=== PATIENT | male | born 1955 ===

== ENCOUNTER 2018-09-22 10:24 | Emergency (ER) | payer OTHER ==
--- OUTSIDE RECORDS SUMMARY | 2018-09-22 10:53 | XMS REPORT | Continuity of Care Document ---
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 Lidia Albarran, MAIN Primary Care Physician Unavailable Payers Date Identification Numbers Payment Provider Subscriber Policy Number: [id number] [employer] Jayy Otto PayID: [id number] [address] [place] [address] Expires: 2015 Policy Number: [id number] [employer] Jayy Otto PayID: [id number] [address] [place] [address] Problems Active Problems Provider Date Mixed hyperlipidemia Onset: 08/13/2016 Family History Date Family Member(s) Observation Comments Father CAD Siblings 2 Social History Type Date Description Comments Sex Unknown Lives With Alone Diet Healthy, Well Balanced Occupation [employer] ADL's/IADL's Independent with all ADL's Tobacco Use Start: Unknown End: Unknown Former Cigarette Smoker Smoking Status Reviewed: 09/07/18 Former Cigarette Smoker ETOH Use Denies alcohol use Tobacco Use Start: Unknown End: Unknown Patient is a former smoker Recreational Drug Use Former Drug User Allergies, Adverse Reactions, Alerts Active Allergies Reaction Severity Comments Date Penicillin Severe 08/13/2016 Medications Active Medications SIG Qnty Indications Ordering Provider Date Cardizem CD 1 by mouth every 90caps Gil De 11/17/2017 120mg Caps andreea Raymond M.D., [facility] 24HR Vitamin D3 Ultra 1 tab by mouth Unknown Strength every day 5000Unit Capsules Magnesium-Oxide 1 by mouth every Unknown 500mg day Tablets Ventolin HFA 2 puffs 4-6 hours Unknown as needed 108(90Base) mcg/Act Aerosol Probiotic Daily 1 by mouth every 90caps Unknown day Capsules Testosterone apply 1 packet to Unknown 50mg/5GM shoulder and (1%) Gel under arms every morning as directed Zinc take one every Unknown 30mg Capsules day Potassium Gluconate 1 tablet daily Unknown Tablets L-Carnitine Triple Unknown Strength 1500-10mg/15ML Liquid History Medications Amlodipine Besylate 1 by mouth every 30tabs Xavi Hurtado MD 09/23/2017 - day at bedtime 11/17/2017 2.5mg Tablets Plavix 1 by mouth every 30tabs Xavi Hurtado MD 09/23/2017 - 75mg Tablets day Unknown Aspirin Ec Low Dose 1 by mouth every 90tabs Xavi Hurtado MD 09/23/2017 - day Unknown 81mg Tablets DR Cr 1 by mouth every 30tabs I10 Xavi Hurtado MD 08/27/2017 - 5mg Tablets day at bedtime 09/03/2017 Dhea 1 by mouth every Unknown - 10mg Capsules day 08/21/2016 Atorvastatin Calcium 1 by mouth every Unknown - day 08/21/2016 20mg Tablets Testim one tube every day Unknown - 50mg/5GM (1%) to shoulders 10/07/2016 Gel Loratadine 1 by mouth every Unknown - 10mg day 07/30/2017 Capsules Acetaminophen/Codeine Unknown - Phosphate Unknown 300-30mg Tablets Ibuprofen TK 1 T PO Q 6 H Unknown - 600mg Tablets prn P Unknown Rosuvastatin Calcium Take One Tablet By Unknown - Mouth Every Day Unknown 5mg Tablets Immunizations CPT Code Status Date Vaccine Lot # [id number] Given 12/05/2011 flu vaccination Vital Signs Date Vital Result Comment 09/07/2018 9:29am BP Systolic Sitting Left Arm 105 mmHg BP Diastolic Sitting Left Arm 65 mmHg Heart Rate 82 /min Respiratory Rate 18 /min Height 67 inches 5'7" Weight 216.00 lb BMI (Body Mass Index) 33.8 kg/m2 BSA (Body Surface Area) 2.09 m2 [place] body weight in kilograms 67 kg O2 % BldC Oximetry 98 % 03/19/2018 10:39am BP Systolic Sitting Left Arm 148 mmHg BP Diastolic Sitting Left Arm 75 mmHg Heart Rate 81 /min Respiratory Rate 16 /min Height 67 inches 5'7" Weight 225.00 lb BMI (Body Mass Index) 35.2 kg/m2 BSA (Body Surface Area) 2.13 m2 [place] body weight in kilograms 67 kg O2 % BldC Oximetry 97 % 02/08/2018 10:08am BP Systolic Sitting Left Arm 128 mmHg BP Diastolic Sitting Left Arm 76 mmHg Heart Rate 81 /min Respiratory Rate 18 /min Height 67 inches 5'7" Weight 217.00 lb BMI (Body Mass Index) 34.0 kg/m2 BSA (Body Surface Area) 2.09 m2 [place] body weight in kilograms 67 kg O2 % BldC Oximetry 98 % Ora 11/06/2017 11:32am BP Systolic Sitting Left Arm 122 mmHg BP Diastolic Sitting Left Arm 64 mmHg Heart Rate 85 /min Respiratory Rate 16 /min Height 67 inches 5'7" Weight 220.00 lb BMI (Body Mass Index) 34.5 kg/m2 BSA (Body Surface Area) 2.11 m2 [place] body weight in kilograms 67 kg O2 % BldC Oximetry 92 % 09/23/2017 11:04am BP Systolic Sitting Left Arm 128 mmHg BP Diastolic Sitting Left Arm 72 mmHg Heart Rate 83 /min Respiratory Rate 18 /min Height 67 inches 5'7" Weight 223.00 lb BMI (Body Mass Index) 34.9 kg/m2 BSA (Body Surface Area) 2.12 m2 [place] body weight in kilograms 67 kg O2 % BldC Oximetry 93 % 08/27/2017 2:21pm BP Systolic Sitting Left Arm 150 mmHg BP Diastolic Sitting Left Arm 78 mmHg Heart Rate 78 /min Respiratory Rate 18 /min Height 67 inches 5'7" Weight 226.00 lb BMI (Body Mass Index) 35.4 kg/m2 BSA (Body Surface Area) 2.13 m2 [place] body weight in kilograms 67 kg O2 % BldC Oximetry 95 % Ora 07/30/2017 11:50am BP Systolic 141 mmHg BP Diastolic 77 mmHg Heart Rate 88 /min Height 66 inches 5'6" Weight 226.00 lb BMI (Body Mass Index) 36.5 kg/m2 BSA (Body Surface Area) 2.11 m2 [place] body weight in kilograms 64 kg 10/23/2016 1:48pm BP Systolic 108 mmHg BP Diastolic 60 mmHg Height 66 inches 5'6" Weight 220.00 lb BMI (Body Mass Index) 35.5 kg/m2 BSA (Body Surface Area) 2.08 m2 [place] body weight in kilograms 64 kg 08/21/2016 1:30pm BP Systolic 142 mmHg BP Diastolic 90 mmHg Height 66 inches 5'6" Weight 231.00 lb BMI (Body Mass Index) 37.3 kg/m2 BSA (Body Surface Area) 2.13 m2 [place] body weight in kilograms 64 kg Results Test Date Facility Test Result H/L Range Note CBC 03/19/2018 [facility] White Blood 7.1 K/uL Normal 3.4-10.5 1 W/Automated [address] Count Diff [place], [place] [id number] [phone] Red Blood Count 5.85 M/uL High 4.20-5.80 Hemoglobin 17.4 gm/dL High 12.8-17.0 Hematocrit 51.6 % High 38.0-48.0 Mean Cell Volume 88.2 fl Normal 80.0-96.0 Mean Corpuscular HGB 29.7 pg Normal 27.0-33.0 Mean Corpuscular HGB Conc 33.7 g/dL Normal 31.7-36.0 Platelet Count 228 K/uL Normal 155-360 Red Cell Distri Width SD 44.2 fl Normal 36-51 Red Cell Distri Width %CV 13.8 % Normal 11.6-15.8 Mean Platelet Volume 9.4 fL Normal 6.6-10.6 Neut% 58.9 % Normal 33.0-73.0 Lymph % 30.0 % Normal 20.0-42.0 [place] % 7.7 % Normal 0.0-10.0 Eo% 1.7 % Normal 0.0-6.6 Bas% 1.7 % High 0.0-1.1 Neut# 4.20 K/uL Normal 1.8-7.0 Lymph # 2.14 K/uL Normal 1.0-4.0 [place] # 0.55 K/uL Normal 0.0-0.8 Eos # 0.12 K/uL Normal 0.0-0.5 Baso # 0.12 K/uL High 0.0-0.1 Comprehensive 03/19/2018 [facility] Glucose 91 mg/dL Normal 74-106 Metabolic Panel [address] [place] [address] [phone] BUN 16 mg/dL Normal 7-18 Creatinine 1.2 mg/dL Normal 0.6-1.3 Glom Filtration Rate, Estimate >60 mL/min >60 If >60 mL/min >60 2 BUN/Creat 13.3 ratio Sodium 140 mmol/L Normal 136-145 Potassium 4.5 mmol/L Normal 3.5-5.1 Chloride 104 mmol/L Normal 98-107 Carbon Dioxide 31 mmol/L Normal 21-32 Anion Gap 5 mEq/L Low 8-16 Calcium 9.3 mg/dL Normal 8.5-10.1 Total Protein 7.7 g/dL Normal 6.4-8.2 Albumin 4.0 g/dL Normal 3.4-5.0 Globulin 3.7 g/dL Normal 1.9-4.3 Alb/Glob 1.1 ratio Bilirubin,Total 0.6 mg/dL Normal 0.2-1.0 Sgot/Ast 23 U/L Normal 15-37 SGPT/Alt 40 U/L Normal 12-78 Alkaline Phosphatase 83 U/L Normal 45-117 Reflex add FT3? Y Reflex add FT4? Y Magnesium 03/19/2018 [facility] Magnesium 2.1 mg/dL Normal 1.8-2.4 [address] [place] [address] [phone] Reflex add FT3? Y Reflex add FT4? Y TSH Reflex 03/19/2018 [facility] Thyroid Stim 1.63 uIU/mL Normal 0.30-4.20 FT4 And/Or [address] Hormone FT3 [place] [address] [phone] Reflex add FT3? Y Reflex add FT4? Y CBS W/Automated 09/23/2017 [facility] White Blood 8.3 K/uL Normal 3.4-10.5 [address] [place] [address] [phone] Red Blood Count 5.77 M/uL Normal 4.20-5.80 Hemoglobin 17.0 gm/dL Normal 12.8-17.0 Hematocrit 50.7 % High 38.0-48.0 Mean Cell Volume 87.9 fl Normal 80.0-96.0 Mean Corpuscular HGB 29.5 pg Normal 27.0-33.0 Mean Corpuscular HGB Conc 33.5 g/dL Normal 31.7-36.0 Platelet Count 242 K/uL Normal 155-360 Red Cell Distri Width SD 43.2 fl Normal 36-51 Red Cell Distri Width %CV 13.6 % Normal 11.6-15.8 Mean Platelet Volume 9.7 fL Normal 6.6-10.6 Neut% 63.4 % Normal 33.0-73.0 Lymph % 23.5 % Normal 20.0-42.0 [place] % 8.3 % Normal 0.0-10.0 Eo% 3.6 % Normal 0.0-6.6 Bas% 1.2 % High 0.0-1.1 Neut# 5.28 K/uL Normal 1.8-7.0 Lymph # 1.96 K/uL Normal 1.0-4.0 [place] # 0.69 K/uL Normal 0.0-0.8 Eos # 0.30 K/uL Normal 0.0-0.5 Baso # 0.10 K/uL Normal 0.0-0.1 Anticoagulant Therapy? NO Basic Metabolic Panel 09/23/2017 [facility] Glucose 90 mg/dL Normal 74-106 [address] [place], [place] [address] [phone] BUN 18 mg/dL Normal 7-18 Creatinine 1.3 mg/dL Normal 0.6-1.3 Glom Filtration Rate, Estimate 60 mL/min >60 If >60 mL/min >60 4 BUN/Creat 13.8 ratio Sodium 141 mmol/L Normal 136-145 Potassium 4.4 mmol/L Normal 3.5-5.1 Chloride 106 mmol/L Normal 98-107 Carbon Dioxide 29 mmol/L Normal 21-32 Anion Gap 6 mEq/L Low 8-16 Calcium 8.8 mg/dL Normal 8.5-10.1 Protime 09/23/2017 [facility] Protime 12.7 seconds Normal 12.0-14.4 [address] [place] [address] [phone] Inr 1.0 Normal 0.9-1.1 5 Anticoagulant Therapy? NO Act Partial 09/23/2017 [facility] Act Partial 27.4 seconds Normal 23.4-35.0 Thrombo Time [address] [facility] [place] [address] [phone] Anticoagulant Therapy? NO Laboratory test 07/27/2017 [facility] Hepatitis C < 0.1 0.0-0.9 6, [address] Antibody s/[place] [address] [phone] Laboratory test 07/27/2017 [facility] Troponin-I 0.049 ng/mL [address] [place] [address] [phone] Xray 07/27/2017 [facility] - Radiology Fluoro/Guid,Lo <pending> [address] [place] [place] [address] Need/Catheter [phone] Tip Laboratory test 07/26/2017 [facility] Troponin-I 0.054 ng/mL [address] [place] [address] [phone] Blood Culture 07/26/2017 [facility] Blood Culture NO GROWTH: [address] Aerobic FINAL <[place] [address] NOTE> [phone] Blood Culture Anaerobic NO GROWTH: FINAL <SEE NOTE> 11 Blood Culture 07/26/2017 [facility] Blood Culture NO GROWTH: FINAL [address] Aerobic <SEE NOTE> [place] [address] [phone] Blood Culture Anaerobic NO GROWTH: FINAL <SEE NOTE> 13 [facility] A Negative Negative [address] [place] [place] [address] [phone] HBsAg Screen [Ref Lab] Negative Negative Hepatitis B Core IgM Negative Negative HCV Signal/Cutoff ratio < 0.1 s/corat 0.0-0.9 15 Laboratory test 07/25/2017 [facility] Lyme (B. Negative Negative [address] bur[place]dorferi) [place] [address] [phone] RDW RBC Auto 07/24/2017 N2N/CCD Import RDW RBC Auto 42.7 36-51 RDW RBC Auto-Rto 07/24/2017 N2N/CCD Import RDW RBC Auto-Rto 13.2 11.6- 15.8 Serum carbon 07/24/2017 N2N/CCD Import Serum carbon 30 21-32 dioxide dioxide measurement measurement Serum or plasma 07/24/2017 N2N/CCD Import Serum or plasma 3.9 3.4-5.0 albumin albumin measurement measurement (mass/volume) (mass/volume) Serum or plasma 07/24/2017 N2N/CCD Import Serum or plasma 80 45-117 alkaline alkaline phosphatase phosphatase measurement ( measurement (enzymatic activity/volume) Serum or plasma 07/24/2017 N2N/CCD Import Serum or plasma 31 15-37 aspartate aspartate aminotransferase aminotransferase measure measurement (enzymatic activity/volume) Serum or plasma 07/24/2017 N2N/CCD Import Serum or plasma 8.9 8.5-10.1 calcium calcium measurement measurement (mass/volume) (mass/volume) Serum or plasma 07/24/2017 N2N/CCD Import Serum or plasma 153 39-308 creatine kinase creatine kinase measurement measurement (enzym (enzymatic activity/volume) Serum or plasma 07/24/2017 N2N/CCD Import Serum or plasma 1.3 0.6-1.3 creatinine creatinine measurement measurement (mass/volum (mass/volume) Serum or plasma 07/24/2017 N2N/CCD Import Serum or plasma 0.96 0.76- 1.46 free thyroxine free thyroxine (FT4) (FT4) measurement measurement ( (mass/volume) Serum or plasma 07/24/2017 N2N/CCD Import Serum or plasma 89 74-106 glucose glucose measurement measurement (mass/volume) (mass/volume) Serum or plasma 07/24/2017 N2N/CCD Import Serum or plasma 2.4 1.8-2.4 magnesium magnesium measurement measurement (mass/volume (mass/volume) Serum or plasma 07/24/2017 N2N/CCD Import Serum or plasma 7.3 6.4-8.2 protein protein measurement measurement (mass/volume) (mass/volume) Serum or plasma 07/24/2017 N2N/CCD Import Serum or plasma 0.9 0.2-1.0 total bilirubin total bilirubin measurement measurement (mass/ (mass/volume) Serum or plasma 07/24/2017 N2N/CCD Import Serum or plasma 0.031 troponin troponin i.cardiac i.cardiac measurement (ma measurement (mass/volume) Serum or plasma 07/24/2017 N2N/CCD Import Serum or plasma 16 7-18 urea nitrogen urea nitrogen measurement measurement (mass/vo (mass/volume) Serum sodium 07/24/2017 N2N/CCD Import Serum sodium 140 136-145 measurement measurement TSH SerPl-aCnc 07/24/2017 N2N/CCD Import TSH SerPl-aCnc 1.84 0.30-4.20 Unloinc 07/24/2017 N2N/CCD Import Unloinc See Note 17 Anion Gap 07/24/2017 N2N/CCD Import Anion Gap 4 Low 8-16 SerPl-sCnc SerPl-sCnc Albumin/Glob 07/24/2017 N2N/CCD Import Albumin/Glob 1.1 SerPl SerPl Activated 07/24/2017 N2N/CCD Import Activated partial 27.1 23.4-35.0 partial thromboplastin thromboplastin time (aPTT) in time (aPTT) in platelet poor pl plasma by coagulation assay Alt SerPl-cCnc 07/24/2017 N2N/CCD Import Alt SerPl-cCnc 80 High 12-78 Automated blood 07/24/2017 N2N/CCD Import Automated blood 0.07 0.0-0.1 basophil count basophil count (count/volume) (count/volume) Automated blood 07/24/2017 N2N/CCD Import Automated blood 0.11 0.0-0.5 eosinophil count eosinophil count Automated blood 07/24/2017 N2N/CCD Import Automated blood 49.2 High 38.0- 48.0 hematocrit hematocrit (volume (volume fraction) fraction) Automated blood 07/24/2017 N2N/CCD Import Automated blood 2.55 1.0-4.0 lymphocyte count lymphocyte count (number/volume) (number/volume) Automated blood 07/24/2017 N2N/CCD Import Automated blood 260 155-360 platelet count platelet count Automated blood 07/24/2017 N2N/CCD Import Automated blood 10.4 6.6-10.6 platelet mean platelet mean volume volume measurement measurement Automated 07/24/2017 N2N/CCD Import Automated 30.0 27.0-33.0 erythrocyte mean erythrocyte mean corpuscular corpuscular hemoglobin hemoglobin (mass per erythrocyte) Automated 07/24/2017 N2N/CCD Import Automated 33.7 31.7-36.0 erythrocyte mean erythrocyte mean corpuscular corpuscular hemoglobin hemoglobin concentration measurement (mass/volume) Automated 07/24/2017 N2N/CCD Import Automated 88.8 80.0-96.0 erythrocyte mean erythrocyte mean corpuscular corpuscular volume volume BUN/Creat SerPl 07/24/2017 N2N/CCD Import BUN/Creat SerPl 12.3 Basophils/leuk 07/24/2017 N2N/CCD Import Basophils/leuk 0.7 0.0-1.1 NFr Bld Auto NFr Bld Auto Blood 07/24/2017 N2N/CCD Import Blood 5.54 4.20-5.80 erythrocytes erythrocytes automated count automated count (number/volume) (number/volume) Blood hemoglobin 07/24/2017 N2N/CCD Import Blood hemoglobin 16.6 12.8- 17.0 measurement measurement (mass/volume) (mass/volume) Prothrombin time 07/24/2017 N2N/CCD Import Prothrombin time 13.5 12.0- 14.4 (PT) in platelet (PT) in platelet poor plasma poor plasma Potassium 07/24/2017 N2N/CCD Import Potassium 4.1 3.5-5.1 SerPl-sCnc SerPl-sCnc Platelet poor 07/24/2017 N2N/CCD Import Platelet poor 1.0 0.9-1.1 plasma plasma international international normalized rati normalized ratio (Inr) by coagulation assay (relative time) Neutrophils/leuk 07/24/2017 N2N/CCD Import Neutrophils/leuk 67.6 33.0- 73.0 NFr Bld Auto NFr Bld Auto Neutrophils # 07/24/2017 N2N/CCD Import Neutrophils # Bld 7.23 High 1.8- 7.0 Bld Auto Auto Monocytes/leuk 07/24/2017 N2N/CCD Import Monocytes/leuk 6.9 0.0-10.0 NFr Bld Auto NFr Bld Auto Lymphocytes/leuk 07/24/2017 N2N/CCD Import Lymphocytes/leuk 23.8 20.0- 42.0 NFr Bld Auto NFr Bld Auto Blood leukocytes 07/24/2017 N2N/CCD Import Blood leukocytes 10.7 High 3.4 -10.5 automated count automated count (number/volume) (number/volume) Blood monocytes 07/24/2017 N2N/CCD Import Blood monocytes 0.74 0.0-0.8 automated count automated count (number/volume) (number/volume) Chloride 07/24/2017 N2N/CCD Import Chloride 106 98-107 SerPl-sCnc SerPl-sCnc Eosinophil/leuk 07/24/2017 N2N/CCD Import Eosinophil/leuk 1.0 0.0-6.6 NFr Bld Auto NFr Bld Auto GFR/Bsa pred.non 07/24/2017 N2N/CCD Import GFR/Bsa pred.non 60 >60 black SerPl black SerPl MDRD-ArVRat MDRD-ArVRat Globulin Ser 07/24/2017 N2N/CCD Import Globulin Ser 3.4 1.9-4.3 Calc-mCnc Calc-mCnc CBS W/Automated 10/16/2016 [facility] White Blood Count 7.7 Lizy 3.5-10.8 Diff [phone] 10^3/uL l Red Blood Count 5.04 10^6/uL Normal 4.0-5.4 Hemoglobin 15.2 g/dL Normal 14.0-18.0 Hematocrit 46 % Normal 42-52 Mean Corpuscular Volume 90 fL Normal 80-94 Mean Corpuscular Hemoglobin 30 pg Normal 27-31 Mean Corpuscular HGB Conc 33 g/dL Normal 31-36 Red Cell Distribution Width 13 % Normal 10.5-15 Platelet Count 257 10^3/uL Normal 150-450 Mean Platelet Volume 8 um3 Normal 7.4-10.4 Abs Neutrophils 4.8 10^3/uL Normal 1.5-7.7 Abs Lymphocytes 2.0 10^3/uL Normal 1.0-4.8 Abs Monocytes 0.5 10^3/uL Normal 0-0.8 Abs Eosinophils 0.3 10^3/uL Normal 0-0.6 Abs Basophils 0.1 10^3/uL Normal 0-0.2 Abs Nucleated RBC 0 10^3/uL Normal Granulocyte % 62.0 % Normal 38-83 Lymphocyte % 26.1 % Normal 25-47 Monocyte % 6.6 % Normal 1-9 Eosinophil % 3.9 % Normal 0-6 Basophil % 1.4 % Normal 0-2 Nucleated Red Blood Cells % 0 Normal Laboratory test 10/16/2016 [facility] Luteinizing 2.4 mcIU/mL Normal 2-12 finding [phone] Hormone Estradiol, Confirmatory, S 21 pg/mL Normal 10-40 18 Laboratory test 10/16/2016 [facility] Sex Hormone 33 nmol/L Normal 10-57 19 finding [phone] Binding Globulin Testosterone 268.50 ng/dL Normal 240-950 LDL Cholesterol 10/16/2016 [facility] Triglycerides 111 mg/dL Normal 20 Profile [phone] Cholesterol 182 mg/dL Normal 21 HDL Cholesterol 44.7 mg/dL Normal 22 LDL Cholesterol 115 mg/dL Normal 23 Laboratory test 10/16/2016 [facility] Estradiol <40 pg/mL Normal Less 24 finding [phone] Than 50 Comprehensive 10/16/2016 [facility] Sodium 135 Normal 133-145 Metabolic Panel [phone] mmol/L Potassium 4.2 mmol/L Normal 3.5-5.0 Chloride 101 mmol/L Normal 101-111 Co2 Carbon Dioxide 28 mmol/L Normal 22-32 Anion Gap 6 mmol/L Normal 2-11 Glucose 113 mg/dL High 70-100 Blood Urea Nitrogen 17 mg/dL Normal 6-24 Creatinine 0.88 mg/dL Normal 0.67-1.17 BUN/Creatinine Ratio 19.3 Normal 8-20 Calcium 9.3 mg/dL Normal 8.6-10.3 Total Protein 6.5 g/dL Normal 6.4-8.9 Albumin 4.1 g/dL Normal 3.2-5.2 Globulin 2.4 g/dL Normal 2-4 Albumin/Globulin Ratio 1.7 Normal 1-3 Total Bilirubin 0.70 mg/dL Normal 0.2-1.0 Alkaline Phosphatase 74 U/L Normal 34-104 Alt 31 U/L Normal 7-52 Ast 28 U/L Normal 13-39 Egfr Non- 88.3 Normal >60 Egfr 113.6 Normal >60 25 Comp Metabolic Panel 12/01/2011 N2N/CCD Import Albumin 4.2 GM/DL 3.6- 5.4 Albumin/Globulin Ratio 1.8 1-3 Alkaline Phosphatase 74 U/L 39-117 Alt (SGPT) 31 U/L 17-63 Anion Gap 6.0 mmol/L 2-11 26 Ast (Sgot) 24 U/L 12-42 BUN 15 mg/dL 6-24 BUN/Creatinine Ratio 16.7 8-20 Bilirubin Total 0.9 mg/dL 0.4-1.5 27 Calcium 9.7 mg/dL 8.1-9.9 Chloride 103 mmol/L 101-111 Co2 (Carbon Dioxide) 30.0 mmol/L 22-32 Creatinine 0.9 mg/dL 0.50-1.40 Globulin 2.4 GM/DL 2-4 Glucose 62 mg/dL Low 70-100 One Over Creatinine 1.11 Potassium 4.3 mmol/L 3.5-5.0 Sodium 139 mmol/L 135-145 Total Protein 6.6 GM/DL 6.2-8.1 eGFR 112.7 > 60 28 eGFR Non- 87.6 > 60 Lipid Profile 12/01/2011 N2N/CCD Import Cholesterol 263 mg/dL High Less Than 29 (Trig/Chol/HDL) 200 Cholesterol/HDL Ratio 5.72 AVERAGE High 1-4.97 High Density Lipoprotein 46 mg/dL 40-60 30 Low Density Lipoprotein 149 mg/dL High Less Than 100 31 Triglyceride 339 mg/dL High 40-200 1 R42 2 Note: Persistent reduction for 3 months or more in an eGFR <60 mL/min/1.73 m2 defines CKD. Patients with eGFR values >/=60 mL/min/1.73 m2 may also have CKD if evidence of persistent proteinuria is present. The original MDRD equation for estimated GFR is not valid for patients less than 18 years of age. Additional information may be found at www.kdoqi.org. 3 I25.1O 4 Note: Persistent reduction for 3 months or more in an eGFR <60 mL/min/1.73 m2 defines CKD. Patients with eGFR values >/=60 mL/min/1.73 m2 may also have CKD if evidence of persistent proteinuria is present. The original MDRD equation for estimated GFR is not valid for patients less than 18 years of age. Additional information may be found at www.kdoqi.org. 5 THERAPEUTIC INR RANGE: 2.0 - 3.0 DVT, Pulmonary embolus, prophylaxis against venous thrombosis or systemic embolization in high risk patients. 2.5 - 3.5 Mechanical heart valves 6 DIZZINESS 7 INFCE Result Units: s/co ratio Negative: < 0.8 Indeterminate: 0.8 - 0.9 Positive: > 0.9 The CDC recommends that a positive HCV antibody result be followed up with a HCV Nucleic Acid Amplification test (468686). Performed at: RN - [facility] [address] [id number] Product Specialist: Yaima Torres MD, Phone: [phone] 0.0 - 0.045 ng/mL: Normal 0.046 - 0.5 ng/mL: Suggestive 0.6 - 1.5 ng/mL: Consistent 9 0.0 - 0.045 ng/mL: Normal 0.046 - 0.5 ng/mL: Suggestive 0.6 - 1.5 ng/mL: Consistent 10 NO GROWTH: FINAL REPORT 11 NO GROWTH: FINAL REPORT 12 NO GROWTH: FINAL REPORT 13 NO GROWTH: FINAL REPORT [address] 15 INFCE Result Units: s/co ratio Negative: < 0.8 Indeterminate: 0.8 - 0.9 Positive: > 0.9 The CDC recommends that a positive HCV antibody result be followed up with a HCV Nucleic Acid Amplification test (400228). Performed at: [address] [id number] Product Specialist: Yaima Torres MD, Phone: [phone] No B. burgdorferi DNA Detected. A negative PCR result for Borrelia burgdorferi on a blood sample does not eliminate the possibility of Lyme disease. CDC recommends that two-tiered serological testing in conjunction with clinical evaluation be used as the primary method of diagnosis. This test was developed and its performance characteristics determined by [employer]. It has not been cleared or approved by the Food and Drug Administration. The FDA has determined that such clearance or approval is not necessary. Performed at: [address] [id number] Product Specialist: Jayy Koehler MD, Phone: [phone] Instrument flagged sample for slide review. Less than 10% Bands seen, no other immature WBC's seen. RBC morphology essentially normal. Platelet estimate= 18 ADDITIONAL INFORMATION This test was developed and its performance characteristics determined by [facility] in a manner consistent with CLIA requirements. This test has not been cleared or approved by the U.S. Food and Drug Administration. Test Performed by: [facility] - [address] [id number] Test Performed by: [facility] - [address] [id number] 20 Desirable <150 Borderline high 150-199 High 200-499 Very High >500 21 Desirable <200 Borderline high 200-239 High >239 22 Low <40 Desirable: 40-60 High: >60 23 Desirable: <100 mg/dL Near Optimal: 100-129 mg/dL Borderline High: 130-159 mg/dL High: 160-189 mg/dL Very High: >189 mg/dL 24 Estradiols <40 pg/mL are sent to a reference lab for low range testing. 25 Because ethnic data is not always readily available, this report includes an eGFR for both -Americans and non- Americans. The National Kidney Disease Education Program (NKDEP) does not endorse the use of the MDRD equation for patients that are not between the ages of 18 and 70, are , have extremes of body size, muscle mass, or nutritional status, or are non- or non-. According to the National Kidney Foundation, irrespective of diagnosis, the stage of the disease is based on the level of kidney function: Stage Description GFR(mL/min/1.73 m(2)) 1 Kidney damage with normal or decreased GFR 90 2 Kidney damage with mild decrease in GFR 60-89 3 Moderate decrease in GFR 30-59 4 Severe decrease in GFR 15-29 5 Kidney failure <15 (or dialysis) 26 Anion gap measurement may be of limited value in the presence of any alkalosis, especially in a combined acid base disorder. . 27 A metabolite of Naproxen, O-desmethylnaproxen, has been shown to interfere with the Jendrassik-Randolph method for measuring total bilirubin. Samples from patients who have taken Naproxen have shown spurious elevation in total bilirubin levels. 28 Because ethnic data is not always readily available, this report includes an eGFR for both -Americans and non- Americans. The National Kidney Disease Education Program (NKDEP) does not endorse the use of the MDRD equation for patients that are not between the ages of 18 and 70, are , have extremes of body size, muscle mass, or nutritional status, or are non- or non-. According to the National Kidney Foundation, irrespective of diagnosis, the stage of the disease is based on the level of kidney function: Stage Description GFR(mL/min/1.73 m(2)) 1 Kidney damage with normal or decreased GFR 90 2 Kidney damage with mild decrease in GFR 60- 89 3 Moderate decrease in GFR 30-59 4 Severe decrease in GFR 15-29 5 Kidney failure <15 (or dialysis) 29 CHOLESTEROL INTERPRETATION: Desirable: Less than 200 MG/DL Borderline-High Risk: 200-239 MG/DL High-Risk: 240 MG/DL and over 30 HDL INTERPRETATION: Undesirable: High Risk: Less than 40 MG/DL Desirable: Low Risk: Greater than 60 MG/DL 31 LDL INTERPRETATION: Low Risk Optimal Level: LDL Less than 100 MG/DL Near or Above Optimal: LDL 100-129 MG/DL Borderline High Risk: LDL 130-159 MG/DL High Risk : LDL 160-189 MG/DL Very High Risk: LDL Greater than 189 MG/DL Procedures Date Code Description Status 09/07/2018 79077 EKG-Tracing And Report Completed 08/17/2018 50150 Dual Pacemaker Programming Anayisis, Review And Report Completed 07/01/2018 46678 Eye Exam New Patient Comprehensive Completed 03/19/2018 31724 Dual Pacemaker Programming Anayisis, Review And Report Completed 02/16/2018 80385 Dual Pacemaker Programming Anayisis, Review And Report Completed 11/17/2017 41817 Dual Pacemaker Programming Anayisis, Review And Report Completed 09/09/2017 89630 Stress Test Interpre And Report Only Completed 09/09/2017 06292 Stress Test Physician Super Only Completed 09/09/2017 48138 Myocardial Imaging Tomographic Multiple Study AT Rest Completed Or Stress 08/27/2017 55871 EKG-Tracing And Report Completed 08/25/2017 42212 Echocardiogram Complete Completed 08/18/2017 11847 Dual Pacemaker Programming Anayisis, Review And Report Completed 07/24/2017 97594 Insert or replace pacemaker with electrodes, atrial & Completed ventricle 03/16/2011 58732441 Colonoscopy Completed Encounters Type Date Location Provider Dx Diagnosis Office Visit 09/07/2018 Cardiology Office Xavi Hurtado MD I44.2 Atrioventricular block, 9:15a complete Z95.0 Presence of cardiac pacemaker I47.2 Ventricular tachycardia R42 Dizziness and giddiness E78.2 Mixed hyperlipidemia Office Visit 03/19/2018 10:35a Cardiology Office Thelma Mendez R42 Dizziness and GUI García, giddiness DATA VIRTUALIZATION CONSULTANT I44.2 Atrioventricular block, complete I47.2 Ventricular tachycardia I10 Essential (primary) hypertension Z95.0 Presence of cardiac pacemaker Office Visit 02/08/2018 10:15a Cardiology Office Xavi Hurtado, I47.2 Ventricular MD tachycardia I10 Essential (primary) hypertension I44.2 Atrioventricular block, complete Z95.0 Presence of cardiac pacemaker Office Visit 11/06/2017 11:20a Cardiology Office Perry, I47.2 Ventricular RIKA Rivas tachycardia I44.2 Atrioventricular block, complete Z95.0 Presence of cardiac pacemaker I10 Essential (primary) hypertension Office Visit 09/23/2017 11:00a Cardiology Xavi Hurtado, R94.30 Abnormal result of Office cardiovascular function study, unsp I47.2 Ventricular tachycardia I44.2 Atrioventricular block, complete Z95.0 Presence of cardiac pacemaker I10 Essential (primary) hypertension Office Visit 08/27/2017 Cardiology Xavi Hurtado, I44.2 Atrioventricular 2:00p Office MD block, complete Z95.0 Presence of cardiac pacemaker I47.2 Ventricular tachycardia I10 Essential (primary) hypertension Office Visit 07/30/2017 Surgical Office Sunday, Z95.0 Presence of 11:45a Luis Alberto HAnam, cardiac pacemaker M.D. Office Visit 10/23/2016 Endocrinology Glenys Guaman, E66.9 Obesity, 1:45p M.D. unspecified E78.2 Mixed hyperlipidemia Office Visit 08/21/2016 1:15p Endocrinology Glenys Guaman, E66.9 Obesity, M.D. unspecified E78.2 Mixed hyperlipidemia E29.1 Testicular hypofunction Plan of Treatment Future Appointment(s):03/22/2019 10:00 am - Xavi Hurtado MD at Cardiology Selzoq9202/23/2019 8:10 am - TTM Check at Cardiology Fyvyki1502/15/2019 8:30 am - Patel Amador PA at Cardiology Pmcnpc4409/07/2018 - Xavi Hurtado MDI44.2 Atrioventricular block, completeComments:S/p dual chamber pacemaker Ventricular pacing. EF > 50% on last Echo 08/2017. Asymptomatic, no signs or symptoms of CHF. No need for echo at this time.Z95.0 Presence of cardiac pacemakerComments:Routine device checks per protocol.I47.2 Ventricular tachycardiaComments:No significant VT seen on recent device check. Continue [id number] Dizziness and giddinessComments:No recurrences. Repeated BP manually by myself today 130/78 mmHg. Denies symptoms of chubfpeknnxI37.2 Mixed hyperlipidemiaComments:Intolerant to multiple statins. Declined repeated labs and change in medicationsAllFollow up:6 months. Sooner appt if symptoms arise.
--- OUTSIDE RECORDS SUMMARY | 2018-09-22 10:54 | XMS REPORT | Continuity of Care Document ---
:1955 External Reference #:[id number] Author Name Xavi Hurtado MD Address [address] [place] [address] Care Team Providers Name Role Phone Lidia Albarran NP Care Team Information Air Hammer Stripper Unavailable Lidia Albarran NP Primary Care Physician Unavailable Payers Date Identification Numbers Payment Provider Subscriber Policy Number: [id number] [employer] Jayy Otto PayID: [id number] [address] [place] [address] Expires: 2015 Policy Number: [id number] [employer] Jayy Otto PayID: [id number] [address] [place] [address] Problems Active Problems Provider Date Mixed hyperlipidemia Onset: 08/13/2016 Family History Date Family Member(s) Observation Comments Father CAD Siblings 2 Social History Type Date Description Comments Sex Unknown Lives With Alone Diet Healthy, Well Balanced Occupation [employer] ADL's/IADL's Independent with all ADL's Tobacco Use [...] Medications SIG Qnty Indications Ordering Provider Date Cardiadalm CD 1 by mouth every 90caps Gil De 11/17/2017 120mg Caps day Hira Raymond, [facility] 24HR Vitamin D3 Ultra 1 tab [...] CPT Code Status Date Vaccine Lot # [id number] Given 12/05/2011 flu vaccination Vital Signs Date Vital Result Comment 09/07/2018 9:29am BP Systolic Sitting Left Arm 105 mmHg BP Diastolic Sitting Left Arm 65 mmHg Heart Rate 82 /min Respiratory Rate 18 /min Height 67 inches 5'7" Weight 216.00 lb BMI (Body Mass Index) 33.8 kg/m2 BSA (Body Surface Area) 2.09 m2 [place] body weight in kilograms 67 kg O2 % BldC Oximetry 98 % 03/19/2018 10:39am BP Systolic Sitting Left Arm 148 mmHg BP Diastolic Sitting Left Arm 75 mmHg Heart Rate 81 /min Respiratory Rate 16 /min Height 67 inches 5'7" Weight 225.00 lb BMI (Body Mass Index) 35.2 kg/m2 BSA (Body Surface Area) 2.13 m2 [place] body weight in kilograms 67 kg O2 % BldC Oximetry 97 % 02/08/2018 10:08am BP Systolic Sitting Left Arm 128 mmHg BP Diastolic Sitting Left Arm 76 mmHg Heart Rate 81 /min Respiratory Rate 18 /min Height 67 inches 5'7" Weight 217.00 lb BMI (Body Mass Index) 34.0 kg/m2 BSA (Body Surface Area) 2.09 m2 [place] body weight in kilograms 67 kg O2 % BldC Oximetry 98 % Ora 11/06/2017 11:32am BP Systolic Sitting Left Arm 122 mmHg BP Diastolic Sitting Left Arm 64 mmHg Heart Rate 85 /min Respiratory Rate 16 /min Height 67 inches 5'7" Weight 220.00 lb BMI (Body Mass Index) 34.5 kg/m2 BSA (Body Surface Area) 2.11 m2 [place] body weight in kilograms 67 kg O2 % BldC Oximetry 92 % 09/23/2017 11:04am BP Systolic Sitting Left Arm 128 mmHg BP Diastolic Sitting Left Arm 72 mmHg Heart Rate 83 /min Respiratory Rate 18 /min Height 67 inches 5'7" Weight 223.00 lb BMI (Body Mass Index) 34.9 kg/m2 BSA (Body Surface Area) 2.12 m2 [place] body weight in kilograms 67 kg O2 % BldC Oximetry 93 % 08/27/2017 2:21pm BP Systolic Sitting Left Arm 150 mmHg BP Diastolic Sitting Left Arm 78 mmHg Heart Rate 78 /min Respiratory Rate 18 /min Height 67 inches 5'7" Weight 226.00 lb BMI (Body Mass Index) 35.4 kg/m2 BSA (Body Surface Area) 2.13 m2 [place] body weight in kilograms 67 kg O2 % BldC Oximetry 95 % Ora 07/30/2017 11:50am BP Systolic 141 mmHg BP Diastolic 77 mmHg Heart Rate 88 /min Height 66 inches 5'6" Weight 226.00 lb BMI (Body Mass Index) 36.5 kg/m2 BSA (Body Surface Area) 2.11 m2 [place] body weight in kilograms 64 kg 10/23/2016 1:48pm BP Systolic 108 mmHg BP Diastolic 60 mmHg Height 66 inches 5'6" Weight 220.00 lb BMI (Body Mass Index) 35.5 kg/m2 BSA (Body Surface Area) 2.08 m2 [place] body weight in kilograms 64 kg 08/21/2016 1:30pm BP Systolic 142 mmHg BP Diastolic 90 mmHg Height 66 inches 5'6" Weight 231.00 lb BMI (Body Mass Index) 37.3 kg/m2 BSA (Body Surface Area) 2.13 m2 [place] body weight in kilograms 64 kg Results Test Date Facility Test Result H/L Range Note CBC 03/19/2018 [facility] White Blood 7.1 K/uL N 3.4-10.5 1 W/Automated [address] [place] [address] [phone] Red Blood Count 5.85 M/uL High 4.20-5.80 Hemoglobin 17.4 gm/dL High 12.8-17.0 Hematocrit 51.6 % High 38.0-48.0 Mean Cell Volume 88.2 fl N 80.0-96.0 Mean Corpuscular HGB 29.7 pg N 27.0-33.0 Mean Corpuscular HGB Conc 33.7 g/dL N 31.7-36.0 Platelet Count 228 K/uL N 155-360 Red Cell Distri Width SD 44.2 fl N 36-51 Red Cell Distri Width %CV 13.8 % N 11.6-15.8 Mean Platelet Volume 9.4 fL N 6.6-10.6 Neut% 58.9 % N 33.0-73.0 Lymph % 30.0 % N 20.0-42.0 Bailey % 7.7 % N 0.0-10.0 Eo% 1.7 % N 0.0-6.6 Bas% 1.7 % High 0.0-1.1 Neut# 4.20 K/uL N 1.8-7.0 Lymph # 2.14 K/uL N 1.0-4.0 Bailey # 0.55 K/uL N 0.0-0.8 Eos # 0.12 K/uL N 0.0-0.5 Baso # 0.12 K/uL High 0.0-0.1 Comprehensive Metabolic 03/19/2018 [facility] Glucose 91 mg/dL N 74-106 Panel [address] [place] [address] [phone] BUN 16 mg/dL N 7-18 Creatinine 1.2 mg/dL N 0.6-1.3 Glom Filtration Rate, Estimate >60 mL/min >60 If >60 mL/min >60 2 BUN/Creat 13.3 ratio Sodium 140 mmol/L N 136-145 Potassium 4.5 mmol/L N 3.5-5.1 Chloride 104 mmol/L N 98-107 Carbon Dioxide 31 mmol/L N 21-32 Anion Gap 5 mEq/L Low 8-16 Calcium 9.3 mg/dL N 8.5-10.1 Total Protein 7.7 g/dL N 6.4-8.2 Albumin 4.0 g/dL N 3.4-5.0 Globulin 3.7 g/dL N 1.9-4.3 Alb/Glob 1.1 ratio Bilirubin,Total 0.6 mg/dL N 0.2-1.0 Sgot/Ast 23 U/L N 15-37 SGPT/Alt 40 U/L N 12-78 Alkaline Phosphatase 83 U/L N 45-117 Reflex add FT3? Y Reflex add FT4? Y Magnesium 03/19/2018 [facility] Magnesium 2.1 mg/dL N 1.8-2.4 [address] [place] [address] [phone] Reflex add FT3? Y Reflex add FT4? Y TSH Reflex FT4 03/19/2018 [facility] Thyroid Stim 1.63 uIU/mL N 0.30-4.20 And/Or FT3 [address] [place] [address] [phone] Reflex add FT3? Y Reflex add FT4? Y CBS W/Automated Diff 09/23/2017 [facility] White Blood 8.3 K/uL N 3.4-10.[address] [place] [address] [phone] Red Blood Count 5.77 M/uL N 4.20-5.80 Hemoglobin 17.0 gm/dL N 12.8-17.0 Hematocrit 50.7 % High 38.0-48.0 Mean Cell Volume 87.9 fl N 80.0-96.0 Mean Corpuscular HGB 29.5 pg N 27.0-33.0 Mean Corpuscular HGB Conc 33.5 g/dL N 31.7-36.0 Platelet Count 242 K/uL N 155-360 Red Cell Distri Width SD 43.2 fl N 36-51 Red Cell Distri Width %CV 13.6 % N 11.6-15.8 Mean Platelet Volume 9.7 fL N 6.6-10.6 Neut% 63.4 % N 33.0-73.0 Lymph % 23.5 % N 20.0-42.0 Bailey % 8.3 % N 0.0-10.0 Eo% 3.6 % N 0.0-6.6 Bas% 1.2 % High 0.0-1.1 Neut# 5.28 K/uL N 1.8-7.0 Lymph # 1.96 K/uL N 1.0-4.0 Bailey # 0.69 K/uL N 0.0-0.8 Eos # 0.30 K/uL N 0.0-0.5 Baso # 0.10 K/uL N 0.0-0.1 Anticoagulant Therapy? NO Basic Metabolic Panel 09/23/2017 [facility] Glucose 90 mg/dL N 74-106 [address] [place] [address] [phone] BUN 18 mg/dL N 7-18 Creatinine 1.3 mg/dL N 0.6-1.3 Glom Filtration Rate, Estimate 60 mL/min >60 If >60 mL/min >60 4 BUN/Creat 13.8 ratio Sodium 141 mmol/L N 136-145 Potassium 4.4 mmol/L N 3.5-5.1 Chloride 106 mmol/L N 98-107 Carbon Dioxide 29 mmol/L N 21-32 Anion Gap 6 mEq/L Low 8-16 Calcium 8.8 mg/dL N 8.5-10.1 Protime 09/23/2017 [facility] Protime 12.7 seconds N 12.0-14.4 [address] [place] [address] [phone] Inr 1.0 N 0.9-1.1 5 Anticoagulant Therapy? NO Act Partial 09/23/2017 [facility] Act Partial 27.4 seconds N 23.4-35.[address] [place] [place] [address] [phone] Anticoagulant Therapy? NO Laboratory test 07/27/2017 [facility] Hepatitis C < 0.1 0.0-0.9 6, [address] Antibody s/[place] [address] [phone] Laboratory test 07/27/2017 [facility] Troponin-I 0.049 ng/mL [address] [place] [address] [phone] Xray 07/27/2017 [facility] - Radiology Fluoro/Guid,Lo <pending> [address] [place] [address] Need/Catheter [phone] Tip Laboratory test 07/26/2017 [facility] Troponin-I 0.054 ng/mL [address] [place] [address] [phone] Blood Culture 07/26/2017 [facility] Blood Culture NO GROWTH: [address] Aerobic FINAL <[place] [address] NOTE> [phone] Blood Culture Anaerobic NO GROWTH: FINAL <SEE NOTE> 11 Blood Culture 07/26/2017 [facility] Blood Culture NO GROWTH: FINAL [address] Aerobic <SEE NOTE> [place] [address] [phone] Blood Culture Anaerobic NO GROWTH: FINAL <SEE NOTE> 13 Hepatitis 07/25/2017 [facility] Hepatitis A Negative Negative [address] [place] [address] [phone] HBsAg Screen [Ref Lab] Negative Negative Hepatitis B Core IgM Negative Negative HCV Signal/Cutoff ratio < 0.1 s/corat 0.0-0.9 15 Laboratory test 07/25/2017 [facility] Lyme (B. Negative Negative [address] burgdorferi) [place] [address] [phone] Prothrombin time 07/24/2017 N2N/CCD Import Prothrombin time 13.5 12.0- 14.4 (PT) in platelet (PT) in platelet poor plasma poor plasma RDW RBC Auto 07/24/2017 N2N/CCD Import RDW [...] 07/24/2017 N2N/CCD Import Unloinc See Note 17 Activated 07/24/2017 N2N/CCD Import Activated partial 27.1 23.4-35.0 partial thromboplastin thromboplastin time (aPTT) in time (aPTT) in platelet poor pl plasma by coagulation assay Alt SerPl-cCnc 07/24/2017 N2N/CCD Import Alt SerPl-cCnc 80 High 12-78 Albumin/Glob 07/24/2017 N2N/CCD Import Albumin/Glob 1.1 SerPl SerPl Anion Gap 07/24/2017 N2N/CCD Import Anion Gap 4 Low 8-16 SerPl-sCnc SerPl-sCnc Automated blood 07/24/2017 N2N/CCD Import Automated blood [...] 0.0-1.1 NFr Bld Auto NFr Bld Auto Potassium 07/24/2017 N2N/CCD Import Potassium 4.1 3.5-5.1 [...] 42.0 NFr Bld Auto NFr Bld Auto Globulin Ser 07/24/2017 N2N/CCD Import Globulin Ser 3.4 1.9-4.3 Calc-mCnc Calc-mCnc Blood 07/24/2017 N2N/CCD Import Blood 5.54 4.20-5.80 erythrocytes erythrocytes automated count automated count (number/volume) (number/volume) Blood hemoglobin 07/24/2017 N2N/CCD Import Blood hemoglobin 16.6 12.8- 17.0 measurement measurement (mass/volume) (mass/volume) Blood leukocytes 07/24/2017 N2N/CCD Import Blood leukocytes [...] >60 black SerPl black SerPl MDRD-ArVRat MDRD-ArVRat CBS W/Automated 10/16/2016 [facility] White Blood Count 7.7 N 3.5-10.8 Diff [phone] 10^3/uL Red Blood Count 5.04 10^6/uL N 4.0-5.4 Hemoglobin 15.2 g/dL N 14.0-18.0 Hematocrit 46 % N 42-52 Mean Corpuscular Volume 90 fL N 80-94 Mean Corpuscular Hemoglobin 30 pg N 27-31 Mean Corpuscular HGB Conc 33 g/dL N 31-36 Red Cell Distribution Width 13 % N 10.5-15 Platelet Count 257 10^3/uL N 150-450 Mean Platelet Volume 8 um3 N 7.4-10.4 Abs Neutrophils 4.8 10^3/uL N 1.5-7.7 Abs Lymphocytes 2.0 10^3/uL N 1.0-4.8 Abs Monocytes 0.5 10^3/uL N 0-0.8 Abs Eosinophils 0.3 10^3/uL N 0-0.6 Abs Basophils 0.1 10^3/uL N 0-0.2 Abs Nucleated RBC 0 10^3/uL N Granulocyte % 62.0 % N 38-83 Lymphocyte % 26.1 % N 25-47 Monocyte % 6.6 % N 1-9 Eosinophil % 3.9 % N 0-6 Basophil % 1.4 % N 0-2 Nucleated Red Blood Cells % 0 N Comprehensive 10/16/2016 [facility] Sodium 135 mmol/ L N 133-145 Metabolic Panel [phone] Potassium 4.2 mmol/L N 3.5-5.0 Chloride 101 mmol/L N 101-111 Co2 Carbon Dioxide 28 mmol/L N 22-32 Anion Gap 6 mmol/L N 2-11 Glucose 113 mg/dL High 70-100 Blood Urea Nitrogen 17 mg/dL N 6-24 Creatinine 0.88 mg/dL N 0.67-1.17 BUN/Creatinine Ratio 19.3 N 8-20 Calcium 9.3 mg/dL N 8.6-10.3 Total Protein 6.5 g/dL N 6.4-8.9 Albumin 4.1 g/dL N 3.2-5.2 Globulin 2.4 g/dL N 2-4 Albumin/Globulin Ratio 1.7 N 1-3 Total Bilirubin 0.70 mg/dL N 0.2-1.0 Alkaline Phosphatase 74 U/L N 34-104 Alt 31 U/L N 7-52 Ast 28 U/L N 13-39 Egfr Non- 88.3 N >60 Egfr 113.6 N >60 18 Laboratory test 10/16/2016 [facility] Estradiol <40 pg/mL N Less Than 19 finding [phone] LDL Cholesterol 10/16/2016 [facility] Triglycerides 111 mg/dL N 20 Profile [phone] Cholesterol 182 mg/dL N 21 HDL Cholesterol 44.7 mg/dL N 22 LDL Cholesterol 115 mg/dL N 23 Laboratory test 10/16/2016 [facility] Sex Hormone 33 nmol/L N 10-57 24 finding [phone] Binding Globulin Testosterone 268.50 ng/dL N 240-950 Laboratory test 10/16/2016 [facility] Luteinizing 2.4 mcIU/mL N 2-12 finding [phone] Hormone Estradiol, Confirmatory, S 21 pg/mL N 10-40 25 Comp Metabolic Panel 12/01/2011 N2N/CCD Import [...] with a HCV Nucleic Acid Amplification test (507683). Performed at: RN - [facility] [address] [id number] Timers Inspector: Yaima Torres MD, Phone: [phone] 8 0.0 - 0.045 ng/mL: Normal 0.046 [...] with a HCV Nucleic Acid Amplification test (809183). Performed at: [address] [id number] Timers Inspector: Yaima Torres MD, Phone: [phone] 16 No B. burgdorferi DNA Detected. A negative PCR result for Borrelia burgdorferi on a blood sample does not eliminate the possibility of Lyme disease. CDC recommends that two-tiered serological testing in conjunction with clinical evaluation be used as the primary method of diagnosis. This test was developed and its performance characteristics determined by [facility]. It has not been cleared or approved by the Food and Drug Administration. The FDA has determined that such clearance or approval is not necessary. Performed at: [address] [id number] Timers Inspector: Jayy Koehler MD, Phone: [phone] 17 Instrument flagged sample for slide review. Less than 10% Bands seen, no other immature WBC's seen. RBC morphology essentially normal. Platelet estimate= 18 Because ethnic data is not always readily [...] 15-29 5 Kidney failure <15 (or dialysis) 19 Estradiols <40 pg/mL are sent to a reference lab for low range testing. 20 Desirable <150 Borderline high 150-199 High 200-499 Very High >500 21 Desirable <200 Borderline high 200-239 High >239 22 Low <40 Desirable: 40-60 High: >60 23 Desirable: <100 mg/dL Near Optimal: 100-129 mg/dL Borderline High: 130-159 mg/dL High: 160-189 mg/dL Very High: >189 mg/dL 24 Test Performed by: [facility] - [address] [id number] 25 ADDITIONAL INFORMATION This test was developed and its performance characteristics determined by [facility] in a manner consistent with CLIA requirements. This test has not been cleared or approved by the U.S. Food and Drug Administration. Test Performed by: [facility] - [address] [id number] 26 Anion gap measurement may be of limited value in the presence of any alkalosis, especially in a combined acid base disorder. . 27 A metabolite of Naproxen, O-desmethylnaproxen, has been shown to interfere with the Jendrassik-Lostine method for measuring total bilirubin. Samples from [...] MG/DL Procedures Date Code Description Status 09/07/2018 74506 EKG-Tracing And Report Completed 08/17/2018 61345 Dual Pacemaker Programming Anayisis, Review And Report Completed 07/01/2018 17642 Eye Exam New Patient Comprehensive Completed 03/19/2018 70262 Dual Pacemaker Programming Anayisis, Review And Report Completed 02/16/2018 87146 Dual Pacemaker Programming Anayisis, Review And Report Completed 11/17/2017 88719 Dual Pacemaker Programming Anayisis, Review And Report Completed 09/09/2017 45318 Stress Test Interpre And Report Only Completed 09/09/2017 08448 Stress Test Physician Super Only Completed 09/09/2017 16921 Myocardial Imaging Tomographic Multiple Study AT Rest Completed Or Stress 08/27/2017 79242 EKG-Tracing And Report Completed 08/25/2017 90039 Echocardiogram Complete Completed 08/18/2017 39411 Dual Pacemaker Programming Anayisis, Review And Report Completed 07/24/2017 87063 Insert or replace pacemaker with electrodes, atrial & Completed ventricle 03/16/2011 [id number] Colonoscopy Completed Encounters Type Date Location Provider Dx Diagnosis Office Visit 09/07/2018 Cardiology Office Xavi Hurtado MD I44.2 Atrioventricular block, 9:15a complete Z95.0 Presence of cardiac pacemaker I47.2 Ventricular tachycardia R42 Dizziness and giddiness E78.2 Mixed hyperlipidemia Office Visit 03/19/2018 10:35a Cardiology Office Thelma Mendez R42 Dizziness and GUI García, giddiness [employer] I44.2 Atrioventricular block, complete I47.2 Ventricular tachycardia [...] Xavi Hurtado, R94.30 Abnormal result of Office MD cardiovascular function study, unsp I47.2 Ventricular tachycardia I44.2 Atrioventricular block, complete Z95.0 Presence of cardiac pacemaker I10 Essential (primary) hypertension Office Visit 08/27/2017 Cardiology Xavi Hurtado, I44.2 Atrioventricular 2:00p Office MD block, complete Z95.0 Presence of cardiac pacemaker I47.2 Ventricular tachycardia I10 Essential (primary) hypertension Office Visit 07/30/2017 Surgical Office Sunday, Z95.0 Presence of 11:45a Christopher HAnam, cardiac pacemaker M.D. Office Visit 10/23/2016 Endocrinology Glenys Guaman, E66.9 Obesity, 1:45p M.D. unspecified E78.2 Mixed hyperlipidemia Office Visit 08/21/2016 1:15p Endocrinology Glenys Guaman, E66.9 Obesity, M.D. unspecified E78.2 Mixed hyperlipidemia E29.1 Testicular hypofunction Plan of Treatment Future Appointment(s):03/22/2019 10:00 am - Xavi Hurtado MD at Cardiology Diokts9902/23/2019 8:10 am - TTM Check at Cardiology Mxfcew3402/15/2019 8:30 am - Patel Amador PA at Cardiology Ycjfyz9909/07/2018 - Xavi Hurtado MDI44.2 Atrioventricular block, completeComments:S/p dual chamber pacemaker Ventricular pacing. EF > 50% on last Echo 08/2017. Asymptomatic, no signs or symptoms of CHF. No need for echo at this time.Z95.0 Presence of cardiac pacemakerComments:Routine device checks per protocol.I47.2 Ventricular tachycardiaComments:No significant VT seen on recent device check. Continue [id number] Dizziness and giddinessComments:No recurrences. Repeated BP manually by myself today 130/78 mmHg. Denies symptoms of livxsvpdtqeT36.2 Mixed hyperlipidemiaComments:Intolerant to multiple statins. Declined repeated labs and change in medicationsAllFollow up:6 months. Sooner appt if symptoms arise.
[2018-09-22 11:05] VITALS: BP 148/83
--- NOTE | 2018-09-22 11:26 | UC ---
Respiratory Complaint HPI - HPI Summary HPI Summary: cough x 5 days cough is productive with yellow / green sputum nasal congestion , pnd, fever, chills body aches + fatigue, no chest pain , no sob - History of Current Complaint Chief Complaint: UCGeneralIllness Stated Complaint: FLU-LIKE SYMPTOMS Time Seen by Provider: 09/22/18 11:11 Hx Obtained From: Patient Onset/Duration: Sudden Onset Timing: Constant Severity Currently: Moderate Pain Intensity: 0 Character: Cough: Productive Aggravating Factors: Exertion, Deep Breaths Alleviating Factors: Nothing Associated Signs And Symptoms: Positive: Fever, Chills, URI, Nasal Congestion. Negative: Dyspnea, Pleuritic Chest Pain, Wheezing, Hemoptysis, Dizziness, Calf Pain, Calf Swelling, Hoarseness, Sinus Discomfort - Allergies/Home Medications Allergies/Adverse Reactions: Allergies Allergy/AdvReac Type Severity Reaction Status Date / Time Penicillins Allergy Unknown Verified 09/22/18 11:05 Reaction Details Home Medications: Home Medications Lisinopril TAB* [Prinivil TAB 10 MG*] 1 tab PO DAILY 09/22/18 [History Confirmed 09/22/18] Magnesium Oxide [Magnesium] 1 tab PO DAILY 09/22/18 [History Confirmed 09/22/18] Potassium Chloride 1 tab PO DAILY 09/22/18 [History Confirmed 09/22/18] PMH/Surg Hx/FS Hx/Imm Hx Cardiovascular History: Cardiac Disease, Hypertension, Pacemaker/ICD Respiratory History: Asthma - Surgical History Surgical History: Yes Surgery Procedure, Year, and Place: pacemaker 2018. ORIF R forearm 1975. T&A - Family History Known Family History: Positive: Hypertension - Social History Alcohol Use: None Substance Use Type: None Smoking Status (MU): Former Smoker When Did the Patient Quit Smoking/Using Tobacco: 2006 Review of Systems All Other Systems Reviewed And Are Negative: Yes Constitutional: Positive: Fever, Chills, Fatigue Skin: Positive: Negative Eyes: Positive: Negative ENT: Positive: Negative Respiratory: Positive: Cough. Negative: Shortness Of Breath Cardiovascular: Positive: Negative Is Patient Immunocompromised?: No Physical Exam Triage Information Reviewed: Yes Appearance: Well-Appearing, No Pain Distress, Well-Nourished Vital Signs: Initial Vital Signs Temp 100.3 F 09/22/18 11:00 Pulse 109 09/22/18 11:00 Resp 18 09/22/18 11:00 BP 148/83 09/22/18 11:00 Pulse Ox 95 09/22/18 11:00 Vital Signs Reviewed: Yes Eye Exam: Normal Eyes: Positive: Conjunctiva Clear ENT: Positive: Normal ENT inspection, Hearing grossly normal, Pharynx normal Neck exam: Normal Neck: Positive: Supple, Nontender, No Lymphadenopathy Respiratory: Positive: Chest non-tender, Lungs clear, Normal breath sounds Cardiovascular: Positive: Tachycardia Abdominal Exam: Normal Respiratory Course/Dx - Differential Dx/Diagnosis Provider Diagnosis: Bronchitis Discharge - Sign-Out/Discharge Documenting (check all that apply): Patient Departure All imaging exams completed and their final reports reviewed: No Studies - Discharge Plan Condition: Stable Disposition: HOME Prescriptions: DOXYcycline CAP(*) [DOXYcycline 100MG CAP(*)] 100 mg PO BID #20 cap Patient Education Materials: Acute Bronchitis (ED) Referrals: Charu Carroll PA [Primary Care Provider] - If Needed - Billing Disposition and Condition Condition: STABLE Disposition: Home
== END 2018-09-22 11:27 | disposition home or self-care (01) ==
LOC: UCCORT 10:24
DX: J40 Bronchitis, not specified as acute or chronic (principal); Z88.0 Allergy status to penicillin; I10 Essential (primary) hypertension; Z95.0 Presence of cardiac pacemaker; Z87.891 Personal history of nicotine dependence
CPT/HCPCS: 99212; G0463

== ENCOUNTER 2018-11-29 13:15 | Emergency (ER) | payer OTHER ==
[2018-11-29 13:53] VITALS: BP 152/89
[2018-11-29] MEDS ORDERED: Albuterol 2.5 MG/3 ML NEB.SOL* (0.083%) INH ONE (13:59)
[2018-11-29] MEDS ORDERED: predniSONE TAB* 20 MG PO ONE (13:59)
--- NOTE | 2018-11-29 14:08 | UC ---
UC General HPI - HPI Summary HPI Summary: cough with congestion, sob and wheezing x 2 days. hx childhood asthma. denies fever and cp. green sputum. - History of Current Complaint Chief Complaint: UCRespiratory Stated Complaint: COUGH,CONGESTION Time Seen by Provider: 11/29/18 13:47 Hx Obtained From: Patient Onset/Duration: Gradual Onset Timing: Constant Pain Intensity: 0 Associated Signs & Symptoms: Negative: Chest Pain - Allergy/Home Medications Allergies/Adverse Reactions: Allergies Allergy/AdvReac Type Severity Reaction Status Date / Time Penicillins Allergy Unknown Verified 11/29/18 13:42 Reaction Details Home Medications: Home Medications Albuterol HFA INHALER* [Ventolin HFA Inhaler*] 1 puff INH DAILY 11/29/18 [ History Confirmed 11/29/18] Diltiazem CD CAP* [Cardizem CD CAP*] 120 mg PO DAILY 11/29/18 [History Confirmed 11/29/18] Testosterone GEL (NF) [Androgel (NF)] 1 gel TOPICAL DAILY 11/29/18 [History Confirmed 11/29/18] PMH/Surg Hx/FS Hx/Imm Hx Cardiovascular History: Hypertension, Pacemaker/ICD - heart block hx Respiratory History: Asthma - Surgical History Surgical History: Yes Surgery Procedure, Year, and Place: pacemaker 2018. ORIF R forearm 1975. T&A - Family History Known Family History: Positive: Hypertension - Social History Occupation: Employed Full-time Alcohol Use: None Substance Use Type: None Smoking Status (MU): Former Smoker When Did the Patient Quit Smoking/Using Tobacco: 2006 Review of Systems All Other Systems Reviewed And Are Negative: No Eyes: Negative: Eye Redness ENT: Negative: Sore Throat, Sinus Congestion Gastrointestinal: Negative: Abdominal Pain, Vomiting, Diarrhea, Nausea Genitourinary: Negative: Dysuria Physical Exam Triage Information Reviewed: Yes Appearance: Well-Appearing Vital Signs: Initial Vital Signs Temp 97.9 F 11/29/18 13:48 Pulse 80 11/29/18 13:48 Resp 20 11/29/18 13:48 BP 152/89 11/29/18 13:48 Pulse Ox 97 11/29/18 13:48 Vital Signs Reviewed: Yes Eyes: Positive: Conjunctiva Clear ENT: Positive: Pharynx normal, TMs normal. Negative: Nasal congestion, Nasal drainage Neck: Positive: Supple, Nontender, No Lymphadenopathy Respiratory: Positive: No respiratory distress, Decreased breath sounds, Other: - end inspiratory wheezes BLL's. cough is congested. Cardiovascular: Positive: RRR, No Murmur Abdomen Description: Positive: Nontender Musculoskeletal: Positive: ROM Intact Neurological: Positive: Alert Psychological: Positive: Age Appropriate Behavior Skin Exam: Normal Diagnostics - Radiology No standard instances Radiology Interpretation Completed By: Radiologist - IMPRESSION: No active cardiopulmonary disease is noted. Re-Evaluation - Re-Evaluation First Eval Re-Evaluation Time: 14:35 Change: Improved - much better aeartion. Course/Dx - Differential Dx - Multi-Symptom Differential Diagnoses: Other - cxr = nad - Diagnoses Provider Diagnosis: Bronchitis, Asthma Discharge ED - Sign-Out/Discharge Documenting (check all that apply): Patient Departure All imaging exams completed and their final reports reviewed: Yes - Discharge Plan Condition: Stable Disposition: HOME Prescriptions: Albuterol HFA INHALER* [Ventolin HFA Inhaler*] 2 puff INH Q6H #1 mdi predniSONE TAB* [Deltasone 20 MG TAB*] 40 mg PO DAILY 4 Days #8 tab Patient Education Materials: Asthma (ED), Acute Bronchitis (ED) Referrals: Charu Carroll PA [Primary Care Provider] - 5 Days - Billing Disposition and Condition Condition: STABLE Disposition: Home
== END 2018-11-29 14:49 | disposition home or self-care (01) ==
LOC: UCCORT 13:15
DX: J45.909 Unspecified asthma, uncomplicated (principal); Z95.0 Presence of cardiac pacemaker; I10 Essential (primary) hypertension; Z87.891 Personal history of nicotine dependence; Z88.0 Allergy status to penicillin
CPT/HCPCS: 71046; 99212; G0463; J7512